=== PATIENT | male | born 1990 | race Caucasian/White ===

== ENCOUNTER 2024-01-23 07:48 | Outpatient (AMB) | payer OTHER, SELFPAY ==
[2024-01-23 07:51] VITALS: BP 122/62; PULSE 71; O2SAT 98; BMI 25.5
--- NOTE | 2024-01-23 07:51 | A.OFFPC_ITS ---
Vital Signs 01/23/24 07:51 Height 5 ft 10 in Weight 178 lb BMI 25.5 BP 122/62 Blood Pressure Location Lt brachial Position Sitting Pulse 71 Pulse Source Pulse Oximeter Pulse Oximetry (%) 98 Oxygen Delivery Method Room Air Intake Visit Reasons: New patient, requesting physical Allergies No Known Allergies Allergy (Verified 01/23/24 08:06) Medication List - Last Reconciled 01/23/24 by Lonny Bridges PA-C No Known Home Meds Tobacco use date assessed: 01/23/24 Dental Screening Dental Screen Date: 01/23/24 Did you have a dental visit in the last 12 months?: Yes Did you have a dental problem in the last 6 months where you did not have access to dental care?: No Was dental information given to patient?: Patient has dentist HPI New patient, requesting physical HPI Details Patient is a 33 year male here today as a new patient visit annual physical. Patient's previous PCP was Dr. Daigle Patient is generally healthy and has no significant past medical history. He does report breaking his right ankle at age 14 which has caused him ambulatory compensation resulting in chronic intermittent lower lumbar spine pain and sciatica. He is interested in speaking with the urologist about a vasectomy. He reports his father had a quadruple bypass at age 60. His father was a nonsmoker, ate well and was physically active. He is concerned about early coronary artery disease and would like some baseline cardiology workup. Discussed perhaps doing coronary calcium score Vaccines: Up-to-date with COVID vaccine, tetanus vaccine PFSH Family History (Updated 01/23/24 @ 08:37 by Lonny Bridges PA-C) Mother Alcohol abuse Mental health disorder Father Skin cancer S/P CABG x 4, Onset Age: 60 Brother No problems noted. Daughter No problems noted. Daughter No problems noted. Son No problems noted. Social History (Updated 01/23/24 @ 08:12 by Lonny Bridges PA-C) Housing: House Alcohol intake: current Alcohol intake frequency: a few times a month Alcohol type: beer and wine Patient Tobacco Use Status: Never used Tobacco Tobacco use type: Cigarette e-Cigarette/Vaping Use: Never Used Second Hand Smoke Exposure: No service: No Current occupational status: employed Current occupation: [email or web address] Current occupational exposures/hazards: No Cognitive needs: No Hearing needs: No Vision needs: No Questionnaire PHQ-9 Over the last 2 weeks, how often have you been bothered by any of the following problems? 1. Little interest or pleasure in doing things: not at all 2. Feeling down, depressed, or hopeless: not at all 3. Trouble falling or staying asleep, or sleeping too much: not at all 4. Feeling tired or having little energy: not at all 5. Poor appetite or overeating: not at all 6. Feeling bad about yourself - or that you are a failure or have let yourself or your family down: not at all 7. Trouble concentrating on things, such as reading the newspaper or watching television: not at all 8. Moving or speaking so slowly that other people could have noticed. Or the opposite - being so fidgety or restless that you have been moving around a lot more than usual: not at all 9. Thoughts that you would be better off or of hurting yourself in some way: not at all Total score: 0 Depression Screening Interpretation: Negative Depression Screening Done: Yes 81397 - PHQ-9 Billing: Yes Source: Developed by Drs. Evin David, Winter Galvez, Otoniel Llamas and colleagues, with an educational pritesh from [employer]. Thrive Questionnaire Date Thrive assessed: 01/23/24 I am a: Patient What is your living situation today?: I have a steady place to live Within the past 12 months, did the food you bought not last and you didn't have the money to get more?: Never true Within the past 12 months, did you worry whether your food would run out before you got money to buy more?: Never true Do you have trouble paying for medicines?: No Do you have trouble getting transportation to medical appointments?: No Do you have trouble paying your heating and electricity bill?: No Do you have trouble taking care of your child, family member or friend?: No Do you have trouble with day-to-day activities such as bathing, preparing meals, shopping, managing finances, etc.?: No Are you currently unemployed and looking for a job?: No Are you interested in more education?: No Currently or been in a relationship where the following occur: no concerns reported THRIVE Score: 0 AUDIT C Alcohol Use Questionnaire (AUDIT-C) 1. How often do you have a drink containing alcohol?: 2-3 times a week 2. How many drinks containing alcohol do you have on a typical day when you are drinking?: 3 or 4 3. How often do you have six or more drinks on one occasion?: Never Total Score: 4 TRES-7 AMB Questionnaire TRES-7 Date TRES - 7 assessed: 01/23/24 Feeling nervous, anxious, or on edge: 0 = Not at all Not being able to stop or control worryin = Not at all Worrying too much about different things: 0 = Not at all Trouble relaxin = Not at all Being so restless that it is hard to sit still: 0 = Not at all Becoming easily annoyed or irritable: 0 = Not at all Feeling afraid as if something awful might happen: 0 = Not at all Total TRES-7 score (0-4 normal; 5-9 mild; 10-14 moderate; 15-21 severe): 0 Source: Developed by Drs. Evin David, Winter Galvez, Otoniel Llamas and colleagues, with an educational pritesh from [employer]. TRES-7 Assessment Billing TRES-7 Assessment Tool: TRES-7 Assessment 60512 Review of Systems Const Denies body aches, Denies chills, Denies excessive sweating, Denies fatigue, Denies fever(s) and Denies headache(s) Eyes Denies blurry vision ENT Denies dysphagia, Denies vertigo, Denies dizziness, Denies headache(s), Denies hearing loss and Denies tinnitus Card Denies chest pain, Denies chest pain with activity, Denies syncope, Denies irregular heart rhythm and Denies dyspnea Resp Denies chest congestion, Denies cough, Denies hemoptysis, Denies dyspnea and Denies wheezing GI Denies abdominal pain, Denies melena, Denies hematochezia, Denies coffee ground emesis, Denies dysphagia, Denies diarrhea, Denies nausea and Denies vomiting Denies difficulty urinating, Denies dysuria, Denies urinary frequency, Denies urinary hesitancy and Denies urinary urgency Musc Reports back pain, Denies arthralgias, Denies limited range of motion, Denies muscle cramps and Denies muscle weakness Skin/Breast Denies rash and Denies skin ulcer Neuro Denies Abnormal speech present, Denies confusion, Denies vertigo, Denies dizziness, Denies syncope, Denies headache(s), Denies memory loss and Denies seizure-like activity Psych Denies anxiety, Denies confusion, Denies depression, Denies memory loss, Denies panic attacks and Denies paranoia Endo Denies excessive sweating, Denies fatigue, Denies flushing, Denies polydipsia and Denies polyuria Aller/Immun Denies wheezing Physical exam (Primary Care) Vital Signs: Last Vital Signs Pulse 71 01/23/24 07:51 BP 122/62 01/23/24 07:51 Pulse Ox 98 01/23/24 07:51 Oxygen Delivery Method Room Air 01/23/24 07:51 BMI result Body Mass Index 25.5 Tobacco/Smoking Status: Tobacco use Status Tobacco use date assessed 01/23/24 01/23/24 07:54 Patient Tobacco Use Status Never used Tobacco 01/23/24 07:54 Tobacco use type Cigarette 01/23/24 07:54 e-Cigarette/Vaping Use Never Used 01/23/24 07:54 PHQ-9: PHQ-9 Score PHQ-9: Total score 0 01/23/24 08:01 Depression Screening Interpretation: Negative Thrive Assessment: Date of Thrive Assessment Date Thrive assessed 01/23/24 01/23/24 07:54 Currently or been in a relationship where the following occur: no concerns reported Const General: cooperative, comfortable, no acute distress, alert and awake; No confusion Orientation/consciousness: oriented to person, oriented to place, patient oriented x3 and No confusion HENMT Head: Yes normocephalic Ears: external ears normal and TM's normal bilaterally Face and sinus: No sinus tenderness Mouth: Normal oral and palatal mucosa present and tongue normal Teeth and gingiva: dentition normal and gingiva normal Throat: Yes posterior oropharynx normal, Yes tonsils normal and Yes uvula midline Eyes Conjunctivae: conjunctivae normal Sclerae: sclerae normal Pupils: Equal, round and reactive pupils present EOM: EOMs intact bilaterally Direct Ophthalmoscopy: No no photophobia Neck Neck: Yes no lymphadenopathy, No tender and Yes no JVD Thyroid: Thyroid normal Carotids: no bruits Chest Chest palpation & inspection: no tenderness Resp Effort & Inspection: normal respiratory effort, no audible wheezes, not labored and no stridor Auscultation: no crackles, no rales, no rhonchi and no wheezes Cardio Jugular venous distension: no JVD Rate: regular rate, not bradycardic and not tachycardic Rhythm: regular rhythm Bruits: no carotid bruits Peripheral pulses: Peripheral pulses 2+ throughout GI Inspection: Yes normal to inspection, No abdominal wall ecchymosis and No visible herniation Palpation (GI): Soft to palpation, nontender, no guarding, not rigid and No hepatosplenomegaly present Auscultation: normoactive bowel sounds General: Yes no CVA tenderness Back/Spine/Pelvis Back: no CVA tenderness and No back tenderness Cervical Spine: cervical ROM normal Thoracic/Lumbar Spine: thoracic and lumbar spine normal to inspection, straight leg raise negative bilaterally, No thoraco-lumbar ROM limited and No lumbar spinal tenderness Skin Lesions: no lesions Rashes: no rashes Wounds: no wounds Neuro General: oriented to person, oriented to place, patient oriented x3, CN's II-XI intact bilaterally and No confusion Cranial nerves: Yes Equal, round and reactive pupils present and Yes Normal accommodation reflex present Cognition (Neuro): normal cognition Speech: No Abnormal speech present Gait exam (Neuro): Normal gait present Motor exam (neuro): 5/5 motor strength present throughout Extrem Right upper extremity: full ROM; no cyanosis Left upper extremity: full ROM; no cyanosis Right lower extremity: no edema Left lower extremity: no edema Psych Appearance: grossly normal Mental Status: mental status grossly normal Affect: normal affect Attitude: cooperative Thought process: Normal thought process present Assessment and Plan Assessment & Plan (1) Annual physical exam: Code(s): Z00.00 - Encounter for general adult medical examination without abnormal findings (2) Screening for diabetes mellitus (DM): Code(s): Z13.1 - Encounter for screening for diabetes mellitus (3) Encounter for vasectomy counseling: Code(s): Z30.09 - Encounter for other general counseling and advice on contraception Plan: Has 2 daughters and [address] He would like to speak with Urology about vasectomy. (4) H/O peptic ulcer: Code(s): Z87.11 - Personal history of peptic ulcer disease Plan: Patient has a history of peptic ulcers. Has resolved and does not have any peptic ulcer pain anymore. At this time does not take any anti acid medication. Stays away from NSAIDs. (5) Family history of coronary artery disease: Code(s): Z82.49 - Family history of ischemic heart disease and other diseases of the circulatory system Plan: Evin reports his father had a quadruple bypass in his early 60s. He is concerned about this as his father was physically active, nonsmoker and had a good diet. He feels he would like some kind of baseline cardiology workup. (6) Lumbar radicular syndrome: Code(s): M54.16 - Radiculopathy, lumbar region Plan: He reports he has intermittent lower lumbar spine pain that radiates down his right buttocks. He reports breaking his right ankle and foot at age 14 and this caused him some malalignment in his pelvis. He feels and flexible and has hard time bending over to pick his kids up. He would likely benefit from formal physical therapy. (7) Coccygeal pain: Code(s): M53.3 - Sacrococcygeal disorders, not elsewhere classified Orders: Orders Lipid Panel Today Z82.49 - Family history of ischemic heart disease and other diseases of the circulatory system Complete Blood Count no Diff Today Z87.11 - Personal history of peptic ulcer disease PT Evaluation and Treatment Today M51.9 - Unspecified thoracic, thoracolumbar and lumbosacral intervertebral disc disorder, M54.16 - Radiculopathy, lumbar region XR lumbar spine 2-3V Today M54.16 - Radiculopathy, lumbar region XR pelvis 1-2V Today M53.3 - Sacrococcygeal disorders, not elsewhere classified, M54.16 - Radiculopathy, lumbar region ECG 12 lead EKG Today Z82.49 - Family history of ischemic heart disease and other diseases of the circulatory system Comprehensive [place]. Panel Fast Today Z13.1 - Encounter for screening for diabetes mellitus Referrals Cardiology Referral Z82.49 - Family history of ischemic heart disease and other diseases of the circulatory system Urology Referral Z30.09 - Encounter for other general counseling and advice on contraception Coding Level of Care Code New Pt Prev Care 18-39yr([id number] Diagnoses Annual physical exam Z00.00 Screening for diabetes mellitus (DM) Z13.1 Encounter for vasectomy counseling Z30.09 H/O peptic ulcer Z87.11 Family history of coronary artery disease Z82.49 Lumbar radicular syndrome M54.16 Coccygeal pain M53.3 Additional Codes TRES-7 Assessment Billing - TRES-7 Assessment Tool: TRES-7 Assessment 68313 ([id number])
== END 2024-01-23 08:37 | disposition home or self-care (01) ==
PROVIDERS: PCP Physician Assistant; Visit Provider Physician Assistant
DX: Z00.00 Encounter for general adult medical examination without abnormal findings (principal); M54.16 Radiculopathy, lumbar region; M53.3 Sacrococcygeal disorders, not elsewhere classified; Z87.11 Personal history of peptic ulcer disease
CPT/HCPCS: 99385

== ENCOUNTER 2024-03-17 15:05 | Outpatient (AMB) | payer OTHER, SELFPAY ==
--- NOTE | 2024-03-17 15:10 | MHC.OFFVIS ---
Intake Visit Reasons: Vasectomy Consult Intake Note: New Patient presents for initial visit for Vasectomy Consult Urology Medications: none Blood Thinner: none Children# 2 Expecting# 1 -06/2024 [place] [employer] Caller Required: No Accompanied by: Self / Same As Patient Allergies No Known Allergies Allergy (Verified 03/17/24 16:22) Medication List - Last Reconciled 03/17/24 by HANSA Castro No Known Home Meds HPI Comments Details: Evin is a very pleasant 23-year-old male patient of Dr. Bridges. He presents to the office today for - vasectomy evaluation Vasectomy evaluation The patient presents for vasectomy consultation.? He is currently He has fathered -?2 children with one single partner and has one on the way as his is due the middle of June 2024 The youngest child is - is currently . His partner is aware and permissive for a vasectomy Current form of control is is however prior was control. Current employment is contractor The vasectomy may be complicated due to a history of no complicating issues. Patient education has been provided via [facility] video, via printed information, risks of failure, recovery time, bruising and potential pain syndrome have been stressed Discussion today focused on the presence of vasectomy and the risks, benefits and alternatives that are available. Vasectomy as intended as a permanent form of control. Printed information and literature was provided to the patient. Overall there is a one in 2500 failure rate. This can occur at any time after vasectomy. Risks were discussed highlighting hematoma, spermatocele, epididymal congestion, development of sperm antibodies, and development of chronic pain estimated between 1-5%. The procedure was reviewed in detail. Anatomical diagrams of the male genitalia were used to explain the location of the vas deferens. The vas deferens will be transected, the proximal end will be cauterized, a metal clip would be applied to separate the 2 vas deferens ends. Less common problems that arise with vasectomy include hematoma, bleeding, allergic reaction to anesthetic, epididymal infection, epididymal congestion, scrotal discomfort, spermatic leak, spermatic granuloma and the possibility of antisperm antibodies. He understands these risks and wishes to proceed. Consent was signed at the office today. He also understands that it takes 12 weeks for sperm to fully clear the system. He will need to provide a semen sample at 12 weeks and if this is not clear a 2nd sample at 16 weeks. Medical clearance to stop using protection will only be provided if he satisfies published criteria for sperm clearance. PFSH Family History Mother Alcohol abuse Mental health disorder Father Skin cancer S/P CABG x 4, Onset Age: 60 Brother No problems noted. Daughter No problems noted. Daughter No problems noted. Son No problems noted. Social History Housing: House Alcohol intake: current Alcohol intake frequency: a few times a month Alcohol type: beer and wine Patient Tobacco Use Status: Never used Tobacco Tobacco use type: Cigarette e-Cigarette/Vaping Use: Never Used Second Hand Smoke Exposure: No service: No Current occupational status: employed Current occupation: [employer] Current occupational exposures/hazards: No Cognitive needs: No Hearing needs: No Vision needs: No Review of Systems Const All systems reviewed & are unremarkable except as noted in HPI and below Physical Exam Const General: cooperative, healthy appearing, comfortable, no acute distress, well developed, alert and awake Orientation/consciousness: patient oriented x3 Limitations: no limitations HEENT Head: Yes normal to inspection, Yes normocephalic and Yes atraumatic Ears: hearing grossly normal bilaterally Eyes General: appearance normal, both eyes and all related structures Neck Neck: Yes normal visual inspection and Yes trachea midline Chest Chest palpation & inspection: normal inspection of the chest Resp Effort & Inspection: normal respiratory effort and able to speak in complete sentences Cardio Rate: regular rate GI Inspection: Yes normal to inspection General: Yes no CVA tenderness Back/Spine/Pelvis Back: no CVA tenderness Skin General skin exam: no rashes or lesions noted Neuro General: patient oriented x3 Extrem General: Yes normal to inspection Psych Appearance: grossly normal and well kempt Mental Status: mental status grossly normal Speech and movement: Normal speech and movement present and Clear speech present Affect: normal affect Attitude: cooperative Thought process: Normal thought process present Thought content: Normal thought content present Insight: Fair insight present (Psych) Judgement: Fair judgement present (Psych) Results AMB Urinalysis, Automated UA Leukoctes 0 Vangie/uL Last Edit by Svetlana White on 03/17/24 15:30 UA Nitrite Negative Last Edit by Svetlana White on 03/17/24 15:30 UA Urobilinogen 0.2 mg/dL Last Edit by Svetlana White on 03/17/24 15:30 UA Protein 0 mg/dL Last Edit by Svetlana White on 03/17/24 15:30 UA pH 6.0 Last Edit by Svetlana White on 03/17/24 15:30 UA Blood 80 Bernardo/uL Last Edit by Svetlana White on 03/17/24 15:30 UA Specific [facility] 1.010 Last Edit by Svetlana White on 03/17/24 15:30 UA Ketone Negative Last Edit by Svetlana White on 03/17/24 15:30 UA Bilirubin 0 mg/dL Last Edit by Svetlana White on 03/17/24 15:30 UA Glucose 0 mg/dL Last Edit by Svetlana White on 03/17/24 15:30 Results Reviewed Results Reviewed: Laboratory Last Values Urine pH (Auto) 6.0 03/17/24 15:16 Specific [facility] (Auto) 1.010 03/17/24 15:16 Urine Protein (Auto) 0 mg/dL 03/17/24 15:16 Glucose (UA)(Auto) 0 mg/dL 03/17/24 15:16 Urine Ketones (Auto) Negative 03/17/24 15:16 Urine Blood (Auto) 80 Bernardo/uL 03/17/24 15:16 Urine Nitrite (Auto) Negative 03/17/24 15:16 Urine Bilirubin (Auto) 0 mg/dL 03/17/24 15:16 Urine Urobilinogen (Auto) 0.2 mg/dL 03/17/24 15:16 Leukocyte Esterase (Auto) 0 Vangie/uL 03/17/24 15:16 Assessment & Plan Assessment & Plan (1) Encounter for vasectomy counseling: Code(s): Z30.09 - Encounter for other general counseling and advice on contraception Category: Medical (2) Anxiety about health: Code(s): R45.89 - Other symptoms and signs involving emotional state Category: Medical Plan: Risks, benefits and alternatives to therapy were discussed. These include but are not limited to infection, bleeding, damage to local organs and tissues, need for further interventions. ? Anesthetic risks regarding cardiac arrhythmia, blood clots, and potential mortality were discussed. The patient understands the typical recovery time and the outpatient nature of the procedure. After consideration of these risks the patient gives full informed consent and they wish to move ahead with the procedure. Plan Discussed at length risks and benefits of vasectomy at length; as noted above. Plan discussed to schedule outpatient vasectomy with sedation. All questions were answered. Consent obtained. Will schedule for vasectomy under sedation as discussed. Orders: Orders AMB Urinalysis Automated Today Z13.9 - Encounter for screening, unspecified Patient Instructions: The patient had an opportunity to ask questions regarding the treatment plan. All questions were answered. Physical exam, labs, and imaging were discussed and reviewed in detail. As well as risks, benefits, and discussion of treatment choices. No major barriers to understanding were identified. The patient expressed understanding and agreement with the above treatment plan. The patient was made aware they should contact our office by phone for worsening of their current condition, the appearance of new symptoms, or with any questions or concerns. Compliance is encouraged with any medications and follow up testing that is ordered. It is a privilege to be allowed the opportunity to participate in? your urological care.? Again, if you have any questions or concerns If you have any questions or concerns please do not hesitate to contact me. The office is [phone]. This note is constructed using voice recognition software. While every effort has been made to ensure accuracy overhead distribution engineer errors may have been included. Yours sincerely, HANSA Castro Coding Level of Care Code New Pt Level 4 (40598) Diagnoses Encounter for vasectomy counseling Z30.09 Anxiety about health R45.89
== END 2024-03-17 15:49 | disposition home or self-care (01) ==
PROVIDERS: PCP Physician Assistant; Visit Provider Nurse Practitioner Family
DX: Z30.09 Encounter for other general counseling and advice on contraception (principal); R45.89 Other symptoms and signs involving emotional state; Z13.9 Encounter for screening, unspecified
CPT/HCPCS: 99204

== ENCOUNTER → 2024-03-17 15:05 | Outpatient (BNVA) | payer OTHER, SELFPAY | PROVIDERS: PCP Physician Assistant; Visit Provider Nurse Practitioner Family | DX: Z30.09 Encounter for other general counseling and advice on contraception (principal); F41.8 Other specified anxiety disorders | CPT/HCPCS: 81003 ==

== ENCOUNTER 2024-04-29 08:34 | Outpatient (AMB) | payer OTHER, SELFPAY ==
[2024-04-29 08:38] VITALS: BP 110/62; PULSE 59; BMI 24.8
--- NOTE | 2024-04-29 08:38 | A.OFFVIS_ITS ---
Vital Signs 04/29/24 08:38 Height 5 ft 10 in Weight 172 lb 13.478 oz BMI 24.8 BP 110/62 Blood Pressure Location Lt brachial Position Sitting Pulse 59 Pulse Source Monitor Intake Visit Reasons: GRADUATE ASSISTANT/Cyrus/Family history of ischemic heart disease? Ribbon Inker Required: No Accompanied by: Self / Same As Patient Allergies No Known Allergies Allergy (Verified 03/17/24 16:22) Medication List - Last Reconciled 04/29/24 by Adan Sullivan MD No Known Home Meds HPI Comments Details: Evin is here for consultation regarding possibility of coronary artery disease. He is concerned as his father had coronary artery bypass surgery around the age of 60 even though he had a fairly healthy lifestyle. Patient himself is very healthy at baseline at does not have any major comorbidities. No major cardiovascular risk factors either. Unlimited physical activity and no symptoms. He would like to have a baseline cardiac assessment. [facility] Family History Mother Alcohol abuse Mental health disorder Father Skin cancer S/P CABG x 4, Onset Age: 60 Brother No problems noted. Daughter No problems noted. Daughter No problems noted. Son No problems noted. Social History Housing: House Alcohol intake: current Alcohol intake frequency: a few times a month Alcohol type: beer and wine Patient Tobacco Use Status: Never used Tobacco Tobacco use type: Cigarette e-Cigarette/Vaping Use: Never Used Second Hand Smoke Exposure: No service: No Current occupational status: employed Current occupation: [employer] Current occupational exposures/hazards: No Cognitive needs: No Hearing needs: No Vision needs: No Review of Systems Const Denies chills, Denies fatigue, Denies fever(s), Denies frequent falls, Denies weakness, Denies weight gain and Denies weight loss ENT Denies dizziness Card Denies chest pain, Denies leg edema, Denies lightheadedness, Denies palpitations, Denies dyspnea, Denies dyspnea on exertion and Denies orthopnea Resp Denies cough, Denies dyspnea and Denies dyspnea on exertion GI Denies bloating and Denies change in bowel habits Musc Denies muscle weakness, Denies numbness and Denies tingling Neuro Denies dizziness, Denies frequent falls, Denies numbness, Denies tingling and Denies weakness Endo Denies fatigue and Denies palpitations Physical Exam Vital Signs: Last Vital Signs Pulse 59 04/29/24 08:38 BP 110/62 04/29/24 08:38 BMI result Body Mass Index 24.8 Const General: comfortable and no acute distress Orientation/consciousness: patient oriented x3 HEENT Other: Unremarkable Head: Yes normal to inspection Neck Neck: Yes normal visual inspection Chest Chest palpation & inspection: normal inspection of the chest Resp Auscultation: clear to auscultation bilaterally Cardio Palpation: normal PMI Heart sounds: S1 normal heart sound present, S2 normal heart sound present, no gallops, no murmurs and no rubs GI Palpation (GI): Soft to palpation Back/Spine/Pelvis Other: unremarkable Skin General skin exam: no rashes or lesions noted Neuro General: patient oriented x3 Extrem General: Yes normal to inspection Psych Mental Status: mental status grossly normal Office Procedures EKG Details: EKG with sinus bradycardia at 59/Min; no significant ST-T changes and otherwise unremarkable[place]. [address]-[id number], Complete Assessment & Plan Assessment & Plan (1) Family history of coronary artery disease: Code(s): Z82.49 - Family history of ischemic heart disease and other diseases of the circulatory system Category: Medical Plan We discussed about various modality to screen for coronary disease as well as assess risk factor profile. His blood pressure seems to be at baseline. His BMI is also well within limits. We need to have an idea of his blood sugar and cholesterol levels and labs are pending. We can also add lipoprotein A levels. We discussed about calcium scoring CT scan and he is willing to undergo that. Follow-up after the above. Orders: Orders Lipoprotein A Today E78.5 - Hyperlipidemia, unspecified, Z82.49 - Family history of ischemic heart disease and other diseases of the circulatory system CT Coronary Calcium Score Today I25.10 - Atherosclerotic heart disease of [place] coronary artery without angina pectoris Coding Level of Care Code New Pt Level 3 (08938) Diagnoses Family history of coronary artery disease Z82.49 CPT Codes EKG - CPT: 81522-[id number], Complete ([id number])
== END 2024-04-29 08:58 | disposition home or self-care (01) ==
PROVIDERS: PCP Physician Assistant; Visit Provider Internal Medicine
DX: Z82.49 Family history of ischemic heart disease and other diseases of the circulatory system (principal)
CPT/HCPCS: 93010; 99203

== ENCOUNTER → 2024-04-29 08:34 | Outpatient (BNVA) | payer OTHER, SELFPAY | PROVIDERS: PCP Physician Assistant; Visit Provider Internal Medicine | DX: I25.10 Atherosclerotic heart disease of native coronary artery without angina pectoris (principal); E78.5 Hyperlipidemia, unspecified; Z82.49 Family history of ischemic heart disease and other diseases of the circulatory system | CPT/HCPCS: 93005 ==

== ENCOUNTER 2025-01-19 10:42 | Outpatient (AMB) | payer OTHER, SELFPAY ==
--- NOTE | 2025-01-19 10:49 | MHC.PC.OV ---
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 Patient is generally healthy and has no significant past medical history. He is interested in speaking with the urologist about a vasectomy. He reports his father had a quadruple bypass at age 60. His father was a nonsmoker, ate well and was physically active. Has followed up [facility] whom ordered lipoprotein a and a coronary artery calcium score testing. Vaccines: Up-to-date with COVID vaccine, tetanus vaccine [facility] Medical History (Updated 01/20/25 @ 07:40 by Lonny Bridges PA-C) H/O peptic ulcer Peptic ulcer Lumbar radicular syndrome Anxiety about health Surgical History History of esophagogastroduodenoscopy (EGD) Family History Mother Alcohol abuse Mental health disorder Father Skin cancer S/P CABG x 4, Onset Age: 60 Brother No problems noted. Daughter No problems noted. Daughter No problems noted. Son No problems noted. Social History (Updated 01/19/25 @ 11:03 by Lonny Bridges PA-C) Housing: House Alcohol intake: current Alcohol intake frequency: a few times a month Alcohol type: beer and wine Patient Tobacco Use Status: Never used Tobacco e-Cigarette/Vaping Use: Never Used Second Hand Smoke Exposure: No service: No Current occupational status: employed Current occupation: [employer] Current occupational exposures/hazards: No Cognitive needs: No Hearing needs: No Vision needs: No Questionnaire PHQ-9 Over the last 2 weeks, how often have you been bothered by any of the following problems? 1. Little interest or pleasure in doing things: not at all 2. Feeling down, depressed, or hopeless: not at all 3. Trouble falling or staying asleep, or sleeping too much: not at all 4. Feeling tired or having little energy: not at all 5. Poor appetite or overeating: not at all 6. Feeling bad about yourself - or that you are a failure or have let yourself or your family down: not at all 7. Trouble concentrating on things, such as reading the newspaper or watching television: not at all 8. Moving or speaking so slowly that other people could have noticed. Or the opposite - being so fidgety or restless that you have been moving around a lot more than usual: not at all 9. Thoughts that you would be better off or of hurting yourself in some way: not at all Total score: 0 Depression Screening Interpretation: Negative Depression Screening Done: Yes 45659 - PHQ-9 Billing: Yes Source: Developed by Drs. Evin David, Winter Galvez, Otoniel Llamas and colleagues, with an educational pritesh from [employer]. Thrive Questionnaire Date Thrive assessed: 01/19/25 I am a: Patient What is your living situation today?: I have a steady place to live Within the past 12 months, did the food you bought not last and you didn't have the money to get more?: Never true Within the past 12 months, did you worry whether your food would run out before you got money to buy more?: Never true Do you have trouble paying for medicines?: I choose not to answer this question Do you have trouble getting transportation to medical appointments?: No Do you have trouble paying your heating and electricity bill?: No Do you have trouble taking care of your child, family member or friend?: No Do you have trouble with day-to-day activities such as bathing, preparing meals, shopping, managing finances, etc.?: No Are you currently unemployed and looking for a job?: No Are you interested in more education?: No Please select the resources that you would like help with: None Currently or been in a relationship where the following occur: No concerns reported THRIVE Score: 0 AUDIT C Alcohol Use Questionnaire (AUDIT-C) 1. How often do you have a drink containing alcohol?: 2-3 times a week 2. How many drinks containing alcohol do you have on a typical day when you are drinking?: 1 or 2 3. How often do you have six or more drinks on one occasion?: Monthly Total Score: 5 TRES-7 AMB Questionnaire TRES-7 Date TRES - 7 assessed: 01/19/25 Feeling nervous, anxious, or on edge: 0 = Not at all Not being able to stop or control worryin = Not at all Worrying too much about different things: 0 = Not at all Trouble relaxin = Not at all Being so restless that it is hard to sit still: 0 = Not at all Becoming easily annoyed or irritable: 0 = Not at all Feeling afraid as if something awful might happen: 0 = Not at all Total TRES-7 score (0-4 normal; 5-9 mild; 10-14 moderate; 15-21 severe): 0 Source: Developed by Drs. Evin David, Winter Galvez, Otoniel Llamas and colleagues, with an educational pritesh from [employer]. TRES-7 Assessment Billing TRES-7 Assessment Tool: TRES-7 Assessment 56052 Review of Systems Const Denies body aches, Denies chills, Denies excessive sweating, Denies fatigue, Denies fever(s) and Denies headache(s) Eyes Denies blurry vision ENT Denies dysphagia, Denies vertigo, Denies dizziness, Denies headache(s), Denies hearing loss and Denies tinnitus Card Denies chest pain, Denies chest pain with activity, Denies syncope, Denies irregular heart rhythm and Denies dyspnea Resp Denies chest congestion, Denies cough, Denies hemoptysis, Denies dyspnea and Denies wheezing GI Denies abdominal pain, Denies melena, Denies hematochezia, Denies coffee ground emesis, Denies dysphagia, Denies diarrhea, Denies nausea and Denies vomiting Denies difficulty urinating, Denies dysuria, Denies urinary frequency, Denies urinary hesitancy and Denies urinary urgency Musc Denies arthralgias, Denies limited range of motion, Denies muscle cramps and Denies muscle weakness Skin/Breast Denies rash and Denies skin ulcer Neuro Denies Abnormal speech present, Denies confusion, Denies vertigo, Denies dizziness, Denies syncope, Denies headache(s), Denies memory loss and Denies seizure-like activity Psych Denies anxiety, Denies confusion, Denies depression, Denies memory loss, Denies panic attacks and Denies paranoia Endo Denies excessive sweating, Denies fatigue, Denies flushing, Denies polydipsia and Denies polyuria Aller/Immun Denies wheezing Physical exam (Primary Care) Vital Signs: Last Vital Signs Pulse 55 01/19/25 10:51 BP 110/82 01/19/25 10:51 Pulse Ox 99 01/19/25 10:51 Oxygen Delivery Method Room Air 01/19/25 10:51 BMI result Body Mass Index 25.7 Tobacco/Smoking Status: Tobacco use Status Tobacco use date assessed 01/19/25 01/19/25 10:54 Patient Tobacco Use Status Never used Tobacco 01/19/25 11:03 Tobacco use type 01/19/25 10:54 e-Cigarette/Vaping Use Never Used 01/19/25 11:03 PHQ-9: PHQ-9 Score PHQ-9: Total score 0 01/19/25 10:59 Depression Screening Interpretation: Negative Thrive Assessment: Date of Thrive Assessment Date Thrive assessed 01/19/25 01/19/25 10:54 Currently or been in a relationship where the following occur: No concerns reported Const General: cooperative, comfortable, no acute distress, alert and awake; No confusion Orientation/consciousness: oriented to person, oriented to place, patient oriented x3 and No confusion HENMT Head: Yes normocephalic Ears: external ears normal and TM's normal bilaterally Face and sinus: No sinus tenderness Mouth: Normal oral and palatal mucosa present and tongue normal Teeth and gingiva: dentition normal and gingiva normal Throat: Yes posterior oropharynx normal, Yes tonsils normal and Yes uvula midline Eyes Conjunctivae: conjunctivae normal Sclerae: sclerae normal Pupils: Equal, round and reactive pupils present EOM: EOMs intact bilaterally Direct Ophthalmoscopy: No no photophobia Neck Neck: Yes no lymphadenopathy, No tender and Yes no JVD Thyroid: Thyroid normal Carotids: no bruits Chest Chest palpation & inspection: no tenderness Resp Effort & Inspection: normal respiratory effort, no audible wheezes, not labored and no stridor Auscultation: no crackles, no rales, no rhonchi and no wheezes Cardio Jugular venous distension: no JVD Rate: regular rate, not bradycardic and not tachycardic Rhythm: regular rhythm Bruits: no carotid bruits Peripheral pulses: Peripheral pulses 2+ throughout GI Inspection: Yes normal to inspection, No abdominal wall ecchymosis and No visible herniation Palpation (GI): Soft to palpation, nontender, no guarding, not rigid and No hepatosplenomegaly present Auscultation: normoactive bowel sounds General: Yes no CVA tenderness Back/Spine/Pelvis Back: no CVA tenderness and No back tenderness Cervical Spine: cervical ROM normal Thoracic/Lumbar Spine: thoracic and lumbar spine normal to inspection, straight leg raise negative bilaterally, No thoraco-lumbar ROM limited and No lumbar spinal tenderness Skin Lesions: no lesions Rashes: no rashes Wounds: no wounds Neuro General: oriented to person, oriented to place, patient oriented x3, CN's II-XI intact bilaterally and No confusion Cranial nerves: Yes Equal, round and reactive pupils present and Yes Normal accommodation reflex present Cognition (Neuro): normal cognition Speech: No Abnormal speech present Gait exam (Neuro): Normal gait present Motor exam (neuro): 5/5 motor strength present throughout Extrem Right upper extremity: full ROM; no cyanosis Left upper extremity: full ROM; no cyanosis Right lower extremity: no edema Left lower extremity: no edema Psych Appearance: grossly normal Mental Status: mental status grossly normal Affect: normal affect Attitude: cooperative Thought process: Normal thought process present Coding Level of Care Code Est Pt Prev Care 18-39y(06248) Diagnoses Annual physical exam Z00.00 Family history of coronary artery disease Z82.49 Encounter for vasectomy counseling Z30.09 Additional Codes PHQ-9 - 14160 - PHQ-9 Billing: Yes ([id number]) TRES-7 Assessment Billing - TRES-7 Assessment Tool: TRES-7 Assessment 77168 ([id number]) Assessment & Plan Assessment & Plan (1) Annual physical exam: Code(s): Z00.00 - Encounter for general adult medical examination without abnormal findings Category: Medical Plan: As per HPI (2) Family history of coronary artery disease: Code(s): Z82.49 - Family history of ischemic heart disease and other diseases of the circulatory system Category: Medical Plan: Patient's father with coronary artery disease in his 60s. He is interested in getting coronary artery calcium score and a lipoprotein a. Otherwise patient is asymptomatic (3) Encounter for vasectomy counseling: Code(s): Z30.09 - Encounter for other general counseling and advice on contraception Category: Medical Plan: Has upcoming appointment with Urology about vasectomy procedure.
[2025-01-19 10:51] VITALS: BP 110/82; PULSE 55; O2SAT 99; BMI 25.7
--- OUTSIDE RECORDS SUMMARY | 2025-01-19 12:52 | XMS_ITS | Encounter Summary ---
Author Organization [facility] Address [address] [place] [address] Phone Care Team Providers Care Farm Tractor Operator Name Role Phone Evin Angel Primary Care Provider [phone] Encounter Details Date Type Department Care Team (Late st Contact Info) Description 12/04/2010 Documentation [facility] [place] Family Medicine [address] [place] [address] Family Medicine, Physician [address] [place], [place] [phone] Social History Tobacco Use Types Packs/Day Years Used Date Smoking Tobacco: Never Assessed Sex and Gender Information Value Date Recorded Sex Assigned at Not on file Legal Sex Male 4:31 PM EDT Gender Identity Not on file Sexual Orientation Not on file documented as of this encounter Plan of Treatment Not on file documented as of this encounter Visit Diagnoses Not on filedocumented in this encounter Care Teams Farm Tractor Operator Relationship Specialty Start Date End Date Evin Angel [address] [place] [id number] PCP - General 06/21/17 documented as of this encounter
--- OUTSIDE RECORDS SUMMARY | 2025-01-19 12:52 | XMS_ITS | Clinical Summary ---
Author Organization [facility] Address [address] [place] [address] Phone Care Team Providers Care Explosive Ordnance Disposal Specialist Name Role Phone Evin Angel Primary Care Provider [phone] Immunizations Immunization Administration Dates Next Due DTP 07/09/1995, 2,02/02/1991,11/17,1990 Hep B, ped/adol 02/18/2002,10/01/2001,09/04/2001 Hib (PRP-T) 04/19/1992 Influenza, injectable, trivalent 10/19/2009 MMR 07/09/1995,10/14/1991 Meningococcal Conj (Menactra) MCV4P 06/24/2008 OPV 07/09/1995, 2,1990,09/12 Td (adult) (MBL), 2 Lf tetan us toxoid, PF, adsorbed 03/03/2002 Tdap 10/19/2009 Family History Relation Name Status Comments Brother Brother: Health y Father Father: Healthy Mother Mother: Healthy Social History Tobacco Use Types Packs/Day Years Used Date Smoking Tobacco: Never Assessed Sex and Gender Information Value Date Recorded Sex Assigned at Not on file Legal Sex Male 4:31 PM EDT Gender Identity Not on file Sexual Orientation Not on file Plan of Treatment Health Maintenance Due Date Last Done Comments Hepatitis B Vaccines (3 of 3 - 3-dose series) 04/15/2002 02/18/2002, 10/01/2001, 09/04/2001 Varicella Vaccines (1 of 2 - 13+ 2-dose series) 2003 DTaP,Tdap,and Td Vaccines (7 - Td or Tdap) 10/19/2019 10/19/2009, 03/03/2002, 07/09/1995, Additional history exists Influenza Vaccines (#1) 2024 10/19/2009 COVID-19 Vaccine ( season) 2024 HIB Vaccines Completed 04/19/1992 IPV Vaccines Completed 07/09/1995, 01/10, 1990, Additional history exists MMR Vaccines Completed 07/09/1995, 10/14/1991 Meningococcal Vaccine Completed 06/24/2008 HPV Vaccines Aged Out No longer eligi ble based on patient's age to complete this topic Hepatitis A Vaccines Aged Out No long er eligible based on patient's age to complete this topic Men B Vaccine Aged Out No longer elig ible based on patient's age to complete this topic Pneumococcal Vaccine Aged Out No long er eligible based on patient's age to complete this topic Care Teams Explosive Ordnance Disposal Specialist Relationship Specialty Start Date End Date Evin Angel [address] [place] [id number] PCP - General 06/21/17
--- OUTSIDE RECORDS SUMMARY | 2025-01-19 12:52 | XMS_ITS | Encounter Summary ---
Author Organization [facility] Address [address] [place] [address] Phone Care Team Providers Care Premises Technician Name Role Phone Evin Angel Primary Care Provider [phone] Encounter Details Date Type Department Care Team (Late st Contact Info) Description 11/13/2010 Documentation [facility] [address] [place] [address] Family Medicine, Physician [address] [place], [place] [phone] Social History Tobacco Use Types Packs/Day Years [...] on filedocumented in this encounter Care Teams Premises Technician Relationship Specialty Start Date End Date Evin Angel [address] [place] [phone] PCP - General 06/21/17 documented as of this encounter
--- OUTSIDE RECORDS SUMMARY | 2025-01-19 12:52 | XMS_ITS | Encounter Summary ---
Author Organization [facility] Address [address] [place] [address] Phone Care Team Providers Care Personal Financial Advisor Name Role Phone Evin Angel Primary Care Provider [phone] Encounter Details Date Type Department Care Team (Late st Contact Info) Description 06/27/2017 Conversion Encounter [facility] [place] [address] [place] [address] Social History Tobacco Use Types Packs/Day Years [...] on filedocumented in this encounter Care Teams Personal Financial Advisor Relationship Specialty Start Date End Date Evin Angel [address] [place] [address] PCP - General 06/21/17 documented as of this encounter
== END 2025-01-19 11:16 | disposition home or self-care (01) ==
LOC: HO.HMCH 10:43
PROVIDERS: PCP Physician Assistant; Visit Provider Physician Assistant
DX: Z00.00 Encounter for general adult medical examination without abnormal findings (principal); Z82.49 Family history of ischemic heart disease and other diseases of the circulatory system; Z30.09 Encounter for other general counseling and advice on contraception

== ENCOUNTER → 2025-01-19 10:42 | Outpatient (BNVA) | payer OTHER, SELFPAY | PROVIDERS: PCP Physician Assistant; Visit Provider Physician Assistant | DX: Z00.00 Encounter for general adult medical examination without abnormal findings (principal); Z82.49 Family history of ischemic heart disease and other diseases of the circulatory system | CPT/HCPCS: 96127 ==

== ENCOUNTER 2025-01-22 07:00 | Outpatient (REF) | payer OTHER, SELFPAY ==
[2025-01-22 07:29] LABS: Hematocrit 43.1 % (42.0-52.0); Mean Corpuscular HGB Conc 34.8 g/dl (31.0-36.0); Mean Corpuscular Hemoglobin 29.8 pg (27.0-33.0); Mean Corpuscular Volume 85.5 fL (80.0-98.0); Platelet Count 231 X10*3/uL (160-400); Red Blood Count 5.04 X10*6/uL (4.60-5.80); Red Cell Distribution Width 11.9 % (11.0-16.0); White Blood Count 5.6 X10*3/uL (4.8-10.8)
[2025-01-22 07:53] LABS: Alanine Aminotransferase 18 U/L (0-40); Albumin Level 4.4 g/dL (3.5-5.0); Alkaline Phosphatase 61 U/L (39-117); Anion Gap 12 (12-20); Aspartate Amino Transferase 20 U/L (5-37); Bilirubin Total 1.3 mg/dL (0.0-1.0); Blood Urea Nitrogen 15 mg/dL (9-16); Calcium 9.2 mg/dL (8.4-10.2); Carbon Dioxide 26 mmol/L (22-29); Chloride 107 mmol/L (96-108); Cholesterol 192 mg/dL (<200); Estimated Glomerular Filt Rate > 60; Glucose Fasting 105 mg/dL (60-99); HDL Cholesterol 55 mg/dL (>40); LDL Cholesterol Calculated 119 mg/dL (<100); Potassium 4.3 mmol/L (3.3-5.1); Sodium 141 mmol/L (135-145); Total Protein 7.8 g/dL (6.5-8.0); Triglycerides 93 mg/dL (<150)
[2025-01-28 08:22] LABS: Lipoprotein A <10 nmol/L (<75)
== END 2025-01-22 07:01 | disposition home or self-care (01) ==
LOC: HO.LAB 07:00
PROVIDERS: Internal Medicine; PCP Physician Assistant; Visit Provider Physician Assistant
DX: Z87.11 Personal history of peptic ulcer disease (principal); Z82.49 Family history of ischemic heart disease and other diseases of the circulatory system; Z13.1 Encounter for screening for diabetes mellitus; E78.5 Hyperlipidemia, unspecified
CPT/HCPCS: 36415; 80053; 80061; 83695; 85027

== ENCOUNTER 2025-01-25 07:44 | Outpatient (AMB) | payer OTHER, SELFPAY ==
--- OUTSIDE RECORDS SUMMARY | 2025-01-25 07:47 | XMS_ITS | Encounter Summary ---
Author Organization [facility] Address [address] [place] [address] Phone Care Team Providers Care Travertine Installer Name Role Phone Evin Angel Primary Care Provider [phone] Encounter Details Date Type Department Care Team (Late st Contact Info) Description 11/13/2010 Documentation [facility] [place] [address] [place] [address] Family Medicine, Physician [address] [place], [place] [phone] Social History Tobacco Use Types Packs/Day Years [...] on filedocumented in this encounter Care Teams Travertine Installer Relationship Specialty Start Date End Date Evin Angel [address] [place] [phone] PCP - General 06/21/17 documented as of this encounter
--- OUTSIDE RECORDS SUMMARY | 2025-01-25 07:47 | XMS_ITS | Encounter Summary ---
Author Organization [facility] Address [address] [place] [address] Phone Care Team Providers Care Drill Press Set Up Operator Name Role Phone Evin Angel Primary Care Provider [phone] Encounter Details Date Type Department Care Team (Late st Contact Info) Description 12/04/2010 Documentation [facility] [place] Family Medicine [address] [place] [address] Family Medicine, Physician [address] [place], [place] [phone] Social History Tobacco Use Types Packs/Day Years [...] on filedocumented in this encounter Care Teams Drill Press Set Up Operator Relationship Specialty Start Date End Date Evin Angel [address] [place] [phone] PCP - General 06/21/17 documented as of this encounter
--- OUTSIDE RECORDS SUMMARY | 2025-01-25 07:47 | XMS_ITS | Clinical Summary ---
Author Organization [facility] Address [address] [place] [address] Phone Care Team Providers Care Double Ending Machine Operator Name Role Phone Evin Angel Primary Care Provider [phone] Immunizations Immunization Administration Dates Next Due DTP [...] age to complete this topic Care Teams Double Ending Machine Operator Relationship Specialty Start Date End Date Evin Angel [address] [place] [phone] PCP - General 06/21/17
--- OUTSIDE RECORDS SUMMARY | 2025-01-25 07:47 | XMS_ITS | Encounter Summary ---
Author Organization [facility] Address [address] [place] [address] Phone Care Team Providers Care Automotive Buyer Name Role Phone Evin Angel Primary Care Provider [phone] Encounter Details Date Type Department Care Team (Late st Contact Info) Description 06/27/2017 Conversion Encounter [facility] [place] [address] [place] [address] Social History Tobacco Use Types Packs/Day Years [...] on filedocumented in this encounter Care Teams Automotive Buyer Relationship Specialty Start Date End Date Evin Angel [address] [place] [address] PCP - General 06/21/17 documented as of this encounter
--- NOTE | 2025-01-25 08:20 | A.OFFVIS_ITS ---
Intake Visit Reasons: Discuss vasectomy (seen 03/2024) Allergies No Known Allergies Allergy (Verified 01/25/25 08:21) Medication List - Last Reconciled 01/25/25 by Rafa Caruso MD diazepam (Valium) 5 mg PO DAILY HPI Comments Details: Evin is a 34 year old male here for evaluation for vasectomy. He has 3 children. Vasectomy procedure was discussed at length with the patient. He was informed that vasectomy is a safe, permanent, and effective form of control but there are risks involved. It may involve risk of hematoma, procedure failure which is rare, sperm granuloma which may cause mild pain, and congestion which may cause sense of pressure and generally resolves after several weeks. 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 He states he was seen last year and wanted the procedure with sedation, however his insurance did not provide significant coverage. [facility] Medical History H/O peptic ulcer Peptic ulcer Lumbar radicular syndrome Anxiety about health Surgical History History of esophagogastroduodenoscopy (EGD) Family History Mother Alcohol abuse Mental health disorder Father Skin cancer S/P CABG x 4, Onset Age: 60 Brother No problems noted. Daughter No problems noted. Daughter No problems noted. Son No problems noted. Social History Housing: House Alcohol intake: current Alcohol intake frequency: a few times a month Alcohol type: beer and wine Patient Tobacco Use Status: Never used Tobacco e-Cigarette/Vaping Use: Never Used Second Hand Smoke Exposure: No service: No Current occupational status: employed Current occupation: [employer] Current occupational exposures/hazards: No Cognitive needs: No Hearing needs: No Vision needs: No Review of Systems Const All systems reviewed & are unremarkable except as noted in HPI and below Reports no additional complaints Eyes Reports no additional complaints ENT Reports no additional complaints Card Reports no additional complaints Resp Reports no additional complaints GI Reports no additional complaints Reports as per HPI Musc Reports no additional complaints Skin/Breast Reports system reviewed and no additional complaints, except as documented Neuro Reports no additional complaints Psych Reports no additional complaints Endo Reports no additional complaints Semaj/Lymph Reports no additional complaints Aller/Immun Reports no additional complaints Assessment & Plan Assessment & Plan (1) Encounter for vasectomy counseling: Code(s): Z30.09 - Encounter for other general counseling and advice on contraception Category: Medical (2) Anxiety about health: Code(s): R45.89 - Other symptoms and signs involving emotional state Category: Medical Plan Schedule ofice vasectiomy with Dr. Chcaon. Zeus to bring to office Medications: New diazepam (Valium) bring with you and take in the office 30 minutes prior to vasectomy 5 mg PO DAILY 2 tabs 0RF Patient Instructions: The patient had an opportunity to ask questions regarding treatment plan. The patient expressed understanding and agreement with the above treatment plan. The patient is aware they should contact our office by phone for worsening of their current condition or the appearance of new symptoms. Compliance is encouraged with any medications and followup testing that is ordered. It is a privilege to be allowed the opportunity to participate in the urologic care of your patient. If you have any questions or concerns regarding treatment for the above conditions please do not hesitate to contact me. The office telephone contact is [phone]. This note is constructed in part using voice recognition software. While every effort has been made to ensure accuracy cloth shearer errors may have been included. Yours sincerely, Rafa Caruso MD Coding Level of Care Code Est Pt Level 4 (15922) Diagnoses Encounter for vasectomy counseling Z30. Anxiety about health R45.89
== END 2025-01-25 08:56 | disposition home or self-care (01) ==
LOC: HO.HUSH 07:45
PROVIDERS: PCP Physician Assistant; Visit Provider Urology
DX: Z30.09 Encounter for other general counseling and advice on contraception (principal); R45.89 Other symptoms and signs involving emotional state
CPT/HCPCS: 99214

== ENCOUNTER 2025-03-30 14:52 | Outpatient (AMB) | payer OTHER, SELFPAY ==
--- NOTE | 2025-03-30 15:13 | A.OFFVIS_ITS ---
Intake Visit Reasons: vasectomy Intake Note: Patient is present for VASECTOMY Urology Medication:NONE Antibiotic Allergy:NONE Blood Thinner:NONE Help Desk Associate Required: No Allergies No Known Allergies Allergy (Verified 03/30/25 15:13) HPI Comments Details: Evin is a very pleasant 34-year-old male patient of Dr. Bridges. He presents to the office today for - vasectomy procedure works as a labor and delivery nurse Vasectomy evaluation The patient presents for vasectomy consultation.? He is currently He has fathered -3 children The youngest child is - 9 month His partner is aware and permissive for a vasectomy Current form of control is is however prior was control. Current employment is contractor [employer] Medical History H/O peptic ulcer Peptic ulcer Lumbar radicular syndrome Anxiety about health Surgical History History of esophagogastroduodenoscopy (EGD) Family History Mother Alcohol abuse Mental health disorder Father Skin cancer S/P CABG x 4, Onset Age: 60 Brother No problems noted. Daughter No problems noted. Daughter No problems noted. Son No problems noted. Social History Housing: House Alcohol intake: current Alcohol intake frequency: a few times a month Alcohol type: beer and wine Patient Tobacco Use Status: Never used Tobacco e-Cigarette/Vaping Use: Never Used Second Hand Smoke Exposure: No service: No Current occupational status: employed Current occupation: [employer] Current occupational exposures/hazards: No Cognitive needs: No Hearing needs: No Vision needs: No Review of Systems Const Denies chills and Denies fever(s) Card Reports no additional complaints and Denies syncope Resp Denies cough GI Denies abdominal pain and Denies heartburn Reports as per HPI and Denies change in libido Neuro Denies syncope Psych Denies change in libido Endo Denies change in libido Physical Exam Const General: cooperative, healthy appearing, comfortable and no acute distress Orientation/consciousness: patient oriented x3 HEENT Face and sinus: Yes normal facial exam Mouth: moist mucous membranes Neck Neck: Yes normal visual inspection, Yes full ROM and Yes trachea midline Chest Chest palpation & inspection: normal inspection of the chest Resp Effort & Inspection: normal respiratory effort, able to speak in complete sentences and no respiratory distress GI Inspection: Yes normal to inspection Back/Spine/Pelvis Cervical Spine: normal cervical lordosis Thoracic/Lumbar Spine: thoracic and lumbar spine normal to inspection Skin General skin exam: no rashes or lesions noted Neuro General: patient oriented x3, gait normal, tone normal and moves all extremities Extrem General: Yes normal to inspection and Yes capillary refill normal Office Procedures Vasectomy Details: Preoperative diagnosis: Anxiety regarding Postoperative diagnosis: Anxiety regarding unplanned Procedure: Bilateral vasectomy Informed consent had been completed. Preoperative and postoperative instructions were provided to the patient. The patient has transportation to home identified at the completion of the procedure. Anti-anxiolytic prescription medication had been taken after consent verification and all questions answered. Tylenol with Codeine pain medication was also provided. The penis was elevated using a rubber band that was attached to the patient's shirt. Both vasa were palpated through the skin using a 3 finger technique and the penoscrotal junction was prepped with Betadine. After Betadine application the left vas was elevated using a 3 finger grasping technique. 1% lidocaine was used to create a subdermal bubble. Further anesthe tic was then advanced using the 25-gauge needle along the vasa in a proximal fashion. Approximately 2 minutes were allowed to for local anesthetic uptake. Using the sharp spreading instrument the scrotal skin was spread longitudinally in line with the vasa until the subdermal layer had been divided. The vasa was then elevated from the scrotum using a ring clamp. Care was taken to elevate the superior portion of the vasa by rotating the ring clamp in a caudad direction. The battery powered cautery was used to divide the vasal sheath in a longitudinal direction on the exposed vasa and to strip the vasal sheath from the vasa. A 2nd narrower ring clamp was placed on the exposed vas and used to lift the vas from the vasal sheath. so it grasped the elevated vas. The cautery was used to divide vasal attachments and allow full exposure of a small loop of vasa. The sharp spreading instrument was then used to create a tunnel under the vasa and spread to allow the blood vessels of the vasa to retract from the vasa. A mosquito clamp was placed on the proximal portion of the vas. The battery- powered cautery was used to make a partial division in the proximal vas and then inserted in order to cauterize the proximal end of the vas. This was then cut and allowed to retract into the vasal sheath. The mosquito was then used to twist the vasa 180 degrees creating a fascial interposition. Using a 4-0 chromic suture the fascial interposition was sutured closed. The distal portion of the vas was then cut in order to obtain a segment of vasa. The vasa were allowed to retract back into the scrotum. A small snap was then used to approximate the skin edges and allow hemostasis without placement of a suture. A similar procedure was repeated on the right side. He tolerated the procedure well. Triple antibiotic was applied. A gauze was applied. An ice pack was applied to assist with minimizing swelling. Postoperative instructions were confirmed. He understands the need to continue to use control methods. A semen sample should be brought for inspection under the microscope in 10-12 weeks. CPT 35531 Anesthetic used: other Specimens: vas segments not sent to pathology [id number] - Vasectomy Office Meds lidocaine (PF) 10 mg/mL (1 %) injection solution Performing Provider: Dennis Chacon MD [place] [facility] [place] [facility] Administered by: Dennis Chacon MD on 03/30/25 22:15 Dose Route Admin Location Dispensed Lot Number Expiration Date NDC [employer] 2 mL Infiltration 10 mL Assessment & Plan Assessment & Plan (1) Anxiety about health: Code(s): R45.89 - Other symptoms and signs involving emotional state Category: Medical Plan Vasectomy performed Orders: Orders AMB Vasectomy Today R45.89 - Other symptoms and signs involving emotional state Medications: New lidocaine (PF) 2 mL Infiltration ONCE 2 mL 0RF R45.89 - Other symptoms and signs involving emotional state Patient Instructions: This note is constructed using voice recognition software. While every effort has been made to ensure accuracy switching clerk errors may have been included. Imaging studies, laboratory and physical exam results were discussed and reviewed in detail. No major barriers to patient understanding were identified. An opportunity to ask questions regarding the treatment plan was provided. All questions were answered. The patient expressed understanding and agreement with the above treatment plan. The patient is aware they should contact our office by phone for worsening of their current condition or the appearance of new urologic symptoms. Compliance is encouraged with any medications and followup testing that is ordered. It is a privilege to participate in the urologic care of your patient. If you have any questions or concerns regarding treatment for the above conditions, or other urologic issues, please do not hesitate to contact me. The office telephone contact is [phone]. Sincerely, Dr Dennis Chacon MD, [facility] - Urology Compassionate Specialist Care for the Genitourinary System Coding Level of Care Code Procedure Only Diagnoses Anxiety about health R45.89 CPT Codes Office Procedure - CPT: 21389 - Vasectomy ([id number])
--- OUTSIDE RECORDS SUMMARY | 2025-03-30 16:03 | XMS_ITS | Encounter Summary ---
Author Organization [facility] Address [address] [place] [address] Phone Care Team Providers Care Primary Montessori Teacher Name Role Phone Evin Anegl Primary Care Provider [phone] Encounter Details Date Type Department Care Team (Late st Contact Info) Description 11/13/2010 Documentation [facility] Family Medicine [address] [place] [address] Family Medicine, Physician [address] [place], [place] [id number] Social History Tobacco Use Types Packs/Day Years [...] on filedocumented in this encounter Care Teams Primary Montessori Teacher Relationship Specialty Start Date End Date Evin Angel [address] [place] [id number] PCP - General 06/21/17 documented as of this encounter
--- OUTSIDE RECORDS SUMMARY | 2025-03-30 16:03 | XMS_ITS | Clinical Summary ---
Author Organization [facility] Address [address] [place] [address] Phone Care Team Providers Care High School Agriculture Teacher Name Role Phone Evin Angel Primary Care Provider [phone] Immunizations Immunization Administration Dates Next Due DTP [...] age to complete this topic Care Teams High [employer] Agriculture Teacher Relationship Specialty Start Date End Date Evin Angel [address] [place] [id number] PCP - General 06/21/17
--- OUTSIDE RECORDS SUMMARY | 2025-03-30 16:03 | XMS_ITS | Encounter Summary ---
Author Organization [facility] Address [address] [place] [address] Phone Care Team Providers Care Ammonia Refrigeration Worker Name Role Phone Evin Angel Primary Care Provider [phone] Encounter Details Date Type Department Care Team (Late st Contact Info) Description 06/27/2017 Conversion Encounter [facility] [address] [place] [address] Social History Tobacco Use Types Packs/Day Years [...] on filedocumented in this encounter Care Teams Ammonia Refrigeration Worker Relationship Specialty Start Date End Date Evin Angel [address] [place] [address] PCP - General 06/21/17 documented as of this encounter
--- OUTSIDE RECORDS SUMMARY | 2025-03-30 16:03 | XMS_ITS | Encounter Summary ---
Author Organization [facility] Address [address] [place] [address] Phone Care Team Providers Care Chemical Maker Name Role Phone Evin Angel Primary Care Provider [phone] Encounter Details Date Type Department Care Team (Late st Contact Info) Description 12/04/2010 Documentation [facility] [place] [facility] [address] [place] [address] Family Medicine, Physician [address] [place], [place] [phone] Social History Tobacco Use Types Packs/Day Years [...] on filedocumented in this encounter Care Teams Chemical Maker Relationship Specialty Start Date End Date Evin Angel [address] [place] [id number] PCP - General 06/21/17 documented as of this encounter
== END 2025-03-30 16:47 | disposition home or self-care (01) ==
LOC: HO.HUSH 14:53
PROVIDERS: PCP Physician Assistant; Visit Provider Urology
DX: Z30.2 Encounter for sterilization (principal); R45.89 Other symptoms and signs involving emotional state
CPT/HCPCS: 55250

== ENCOUNTER → 2025-03-30 14:52 | Outpatient (BNVA) | payer OTHER, SELFPAY | PROVIDERS: PCP Physician Assistant; Visit Provider Urology | DX: Z30.2 Encounter for sterilization (principal); F41.8 Other specified anxiety disorders | CPT/HCPCS: 55250; J2003 ==

== ENCOUNTER 2025-06-29 08:53 | Outpatient (AMB) | payer OTHER, SELFPAY ==
--- NOTE | 2025-06-29 09:04 | A.OFFVIS_ITS ---
Intake Visit Reasons: post vasectomy follow up Intake Note: Patient is present for POST VASECTOMY Urology Medication:NONE Antibiotic Allergy:NONE Blood Thinner:NONE Asphalt Machine Operator Required: No Accompanied by: self Allergies No Known Allergies Allergy (Verified 06/29/25 09:05) HPI Comments Details: Evin is a very pleasant 34-year-old male patient of Dr. Bridges. He presents to the office today for - vasectomy procedure works as a labor and delivery nurse Mild bruising postprocedure Resolved No sperm seen on high-powered field evaluation Vasectomy follow-up The patient presents for vasectomy follow-up.? He is currently He has fathered -3 children The youngest child is - 9 month His partner is aware and permissive for a vasectomy Current form of control is is however prior was control. 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 Daughter No problems noted. Daughter No problems noted. Son No problems noted. Social History Housing: House Alcohol intake: current Alcohol intake frequency: a few times a month Alcohol type: beer and wine Patient Tobacco Use Status: Never used Tobacco e-Cigarette/Vaping Use: Never Used Second Hand Smoke Exposure: No service: No Current occupational status: employed Current occupation: [employer] Current occupational exposures/hazards: No Cognitive needs: No Hearing needs: No Vision needs: No Review of Systems Const Denies chills and Denies fever(s) Card Reports no additional complaints and Denies syncope Resp Denies cough GI Denies abdominal pain and Denies heartburn Reports as per HPI and Denies change in libido Neuro Denies syncope Psych Denies change in libido Endo Denies change in libido Physical Exam Const General: cooperative, healthy appearing, comfortable and no acute distress Orientation/consciousness: patient oriented x3 HEENT Face and sinus: Yes normal facial exam Mouth: moist mucous membranes Neck Neck: Yes normal visual inspection, Yes full ROM and Yes trachea midline Chest Chest palpation & inspection: normal inspection of the chest Resp Effort & Inspection: normal respiratory effort, able to speak in complete sentences and no respiratory distress GI Inspection: Yes normal to inspection Back/Spine/Pelvis Cervical Spine: normal cervical lordosis Thoracic/Lumbar Spine: thoracic and lumbar spine normal to inspection Skin General skin exam: no rashes or lesions noted Neuro General: patient oriented x3, gait normal, tone normal and moves all extremities Extrem General: Yes normal to inspection and Yes capillary refill normal Assessment & Plan Assessment & Plan (1) Anxiety about health: Code(s): R45.89 - Other symptoms and signs involving emotional state Category: Medical Plan P.r.n. follow-up Patient Instructions: This note is constructed using voice recognition software. While every effort has been made to ensure accuracy blast furnace helper errors may have been included. Imaging studies, laboratory and physical exam results were discussed and reviewed in detail. No major barriers to patient understanding were identified. An opportunity to ask questions regarding the treatment plan was provided. All questions were answered. The patient expressed understanding and agreement with the above treatment plan. The patient is aware they should contact our office by phone for worsening of their current condition or the appearance of new urologic symptoms. Compliance is encouraged with any medications and followup testing that is ordered. It is a privilege to participate in the urologic care of your patient. If you have any questions or concerns regarding treatment for the above conditions, or other urologic issues, please do not hesitate to contact me. The office telephone contact is [phone]. Sincerely, Dr Dennis Chacon MD, [facility] - Urology Compassionate Specialist Care for the Genitourinary System Coding Level of Care Code Est Pt Level 3 (87994) Diagnoses Anxiety about health R45.89
--- OUTSIDE RECORDS SUMMARY | 2025-06-29 09:43 | XMS_ITS | Patient Health Record ---
Author Organization [facility] Address [address] [place] [address] Care Team Providers Care Nut Sorter Name Role Phone Oxana(inactive) Keon CHAPA Primary Care Provider U Viridiana Esteban Unavailable [phone] Reason For Referral No Information Medications Medication SIG (Take, Route, Frequency, Duration) Notes Start Date End Date Status Hyoscyamine Sulfate 0.125 MG 1-2 tablets Orally every 4-6 hours prn abdominal pain for 30 days 04/15/2015 Active Plan Of Treatment Pending Test Test Name Order Date LIVER PROFILE 04/15/2015 AMYLASE 04/15/2015 LIPASE 04/15/2015 CBC w DIFF 04/15/2015 Insurance Providers Payer Name Payer Address Payer Phone Subscriber Number Group Number Insured Name Patient Relationship to Insured Coverage Start Date Coverage End Date [facility] [employer] [facility] [address] [place] [address] [phone] [id number] MATTHEW Self - patient is the insured Medical (General) History Medical History History ICD Code Denies NE,DM,CVA,Lung disease,renal dise ase
--- OUTSIDE RECORDS SUMMARY | 2025-06-29 09:43 | XMS_ITS | Encounter Summary ---
Author Organization [facility] Address [address] [place] [address] Phone Care Team Providers Care Marketing Analytics Specialist Name Role Phone Evin Angel Primary Care Provider [phone] Encounter Details Date Type Department Care Team (Late st Contact Info) Description 12/04/2010 Documentation [facility] [place] Family Medicine [address] [place] [address] Family Medicine, Physician [address] [place], [place] [phone] Social History Tobacco Use Types Packs/Day Years [...] on filedocumented in this encounter Care Teams Marketing Analytics Specialist Relationship Specialty Start Date End Date Evin Angel [address] [place] [id number] PCP - General 06/21/17 documented as of this encounter
== END 2025-06-29 09:20 | disposition home or self-care (01) ==
LOC: HO.HUSH 08:54
PROVIDERS: PCP Physician Assistant; Visit Provider Urology
DX: R45.89 Other symptoms and signs involving emotional state (principal)
CPT/HCPCS: 99213